=== PATIENT | male | born 1995 | race American Indian/Alaskan Native ===

== ENCOUNTER 2019-01-16 16:24 | Emergency (ER) | payer MEDICAID, OTHER ==
[~2019-01-16] VITALS: Ht 172.7 cm; Wt 81.8 kg
[~2019-01-16 16:24] MED LIST: ACET-3068 PO; NO HOME MEDS
[2019-01-16 16:29] VITALS: BP 108/66
== END 2019-01-16 17:04 | disposition home or self-care (01) ==
LOC: ER 16:24
DX: S61.214A Laceration without foreign body of right ring finger without damage to nail, initial encounter (principal); Z79.899 Other long term (current) drug therapy; W26.0XXA Contact with knife, initial encounter; Y93.89 Activity, other specified; Y92.89 Other specified places as the place of occurrence of the external cause; Y99.8 Other external cause status
CPT/HCPCS: 12001; 99283

== ENCOUNTER 2023-09-08 07:19 | Day surgery (SDC) | payer BC ==
[2023-09-02 12:10] LABS: BASOPHILS % (AUTO) 0.7 % (0-1); EOSINOPHILS # (AUTO) 0.1 X10'3 (0-0.9); EOSINOPHILS % (AUTO) 1.1 % (0-6); LYMPHOCYTES # (AUTO) 2.5 X10'3 (1.1-4.8); LYMPHOCYTES % (AUTO) 35.5 % (21-51); MEAN CORPUSCULAR HEMOGLOBIN 28.8 PG (27.0-31.0); MEAN CORPUSCULAR HGB CONC 34.5 g/dL (33.0-36.5); MEAN CORPUSCULAR VOLUME 83.4 FL (78-98); MEAN PLATELET VOLUME 6.5 FL (7.4-10.4); MONOCYTES # (AUTO) 0.7 X10'3 (0-0.9); MONOCYTES % (AUTO) 9.7 % (2-12); NEUTROPHILS # (AUTO) 3.7 X10'3 (1.8-7.7); PRE OP HEMATOCRIT 45.4 % (42.0-52.0); PRE OP HEMOGLOBIN 15.7 g/dL (14.0-17.9); PRE OP PLATELET COUNT 411 X10'3 (140-440); RED BLOOD COUNT 5.44 X10'6 (4.70-6.10); RED CELL DISTRIBUTION WIDTH 13.7 % (11.5-14.5)
[2023-09-02 12:16] LABS: ALBUMIN 4.3 G/DL (3.4-5.0); ALKALINE PHOSPHATASE 74 IU/L (46-116); BLOOD UREA NITROGEN 20 MG/DL (7-18); BUN/CREATININE RATIO 17.7 (10.0-20.0); CALCIUM 9.8 MG/DL (8.5-10.1); CHLORIDE 102 MMOL/L (99-107); CREATININE 1.13 MG/DL (0.60-1.10); PRE OP ANION GAP 7 (8-16); PRE OP AST 48 U/L (10-37); PRE OP BILIRUB, TOTAL 0.3 MG/DL (0.0-1.0); PRE OP GLUCOSE 93 MG/DL (70-104); PRE OP POTASSIUM 3.8 MMOL/L (3.4-5.1); PRE OP SODIUM 139 MMOL/L (135-145); TOTAL CARBON DIOXIDE 29.6 MMOL/L (24-32); TOTAL PROTEIN 8.4 G/DL (6.4-8.2); eGFR 77 ML/MIN
[2023-09-02 12:23] LABS: PRE OP ALT 133 U/L (30-65)
[2023-09-08] VITALS (11 sets, daily range): BP systolic 112–127; BP diastolic 64–86; PULSE 53–96; RESP 9–22; TEMP 97.5; O2SAT 95–99
[~2023-09-08] VITALS: Ht 172.7 cm; Wt 87.5 kg
[~2023-09-08 07:19] MED LIST changes: -ACET-3068 PO; +BUPIVAcaine/PF 2.5 mg/ml (0.25%) 30ml vial ONE; +cefazolin 2gm/D5W 100mL 100 ML IV ONE; +famotidine 20mg tablet PO ONE; +ringers solution, lacted 1,000 ML IV SCH
[2023-09-08] MEDS ORDERED: morphine 4 MG/ML inj SYRINge IV PRN (09:10)
[2023-09-08] MEDS ORDERED: meperidine/PF 25mg/ml syringe IV PRN ×3 (09:10)
[2023-09-08] MEDS ORDERED: ringers solution, lacted 1,000 ML IV SCH (09:10)
[2023-09-08] MEDS ORDERED: ondansetron/PF 4mg/2ml inj IV PRN (09:10)
[2023-09-08] MEDS ORDERED: proCHLORperazine 10 MG/2 ml inj IV PRN (09:10)
[2023-09-08] MEDS ORDERED: morphine 2 MG/ML inj. syringe IV PRN (09:10)
[2023-09-08] MEDS ORDERED: midazolam 1 mg/ML 2ml injection ONE ×2 (09:13)
[2023-09-08] MEDS ORDERED: fentaNYL/PF 50MCG/1 ML 2ML syringe ONE (09:13)
[2023-09-08] MEDS ORDERED: propofol inj 20 ML IV ONE (09:45)
--- NOTE | 2023-09-08 09:47 | NUR ---
Received from OR via [facility] IN STABLE CONDITION , accompanied by Anesthesiologist and [employer]RESPONDENCE [employer]CHO[employer] TE[employer]ER report given by CORRESPONDENCE SCHOOL TEACHER AND Anesthesiolgist. Addendum: 09/08/23 at 1000 by Yolande Sam RN Amended: Links added.
--- NOTE | 2023-09-08 11:27 | NUR ---
PATIENT DISCHARGED FROM PACU IN STABLE CONDITION AFTER VERBAL AND WRITTEN DISCHARGE INSTRUCTIONS GIVEN. PATIENT GAVE VERBAL UNDERSTANDING OF INSTRUCTIONS GIVEN. PATIENT LEFT FACILITY VIA WHEELCHAIR WITH RN. Addendum: 09/08/23 at 1149 by Yolande Sam RN Amended: Links added.
== END 2023-09-08 11:27 | disposition home or self-care (01) ==
LOC: PAS 07:19
PROVIDERS: ATTEND Orthopaedic Surgery Hand Surgery
DX: S63.641A Sprain of metacarpophalangeal joint of right thumb, initial encounter (principal); Z98.890 Other specified postprocedural states; Z87.891 Personal history of nicotine dependence; Z79.899 Other long term (current) drug therapy; X58.XXXA Exposure to other specified factors, initial encounter; Y93.89 Activity, other specified; Y92.89 Other specified places as the place of occurrence of the external cause; Y99.8 Other external cause status
CPT/HCPCS: 26540; 36415; 80053; 82948; 85025; J0690; J2250; J2704; J3010; J3490; J7030; J7120; Z7506; Z7512; A4215; A4618; A7000